=== PATIENT | male | born 1960 | race African-American/Black ===

== ENCOUNTER 2022-09-04 18:25 | Emergency (ER) | payer SELFPAY ==
[~2022-09-04] VITALS: Ht 188 cm; Wt 90.0 kg
[2022-09-04 18:27] VITALS: BP 154/96
[2022-09-04] MEDS ORDERED: ONDANSETRON HCL 4MG/2ML INJ IV STA (18:58)
[2022-09-04] MEDS ORDERED: MAGNESIUM/ALUMINUM HYDROXIDE/SIMETHICONE 30ML UDC PO STA (18:58)
[2022-09-04] MEDS ORDERED: VISCOUS LIDOCAINE 2% 15 ML UDC PO STA (18:58)
[2022-09-04] MEDS ORDERED: SODIUM CHLORIDE 0.9% 1,000 ML IV ONE (19:00)
[2022-09-04 21:01] LABS: BASOPHILS % 0.6 % (0.0-2.0); EOSINOPHILS % 0.1 % (0.0-5.0); HEMATOCRIT. 37.2 % (42.0-52.0); HEMOGLOBIN. 12.1 g/dL (14.0-18.0); LYMPHOCYTES % 10.8 % (20.0-50.0); MEAN CORPUSCULAR HEMOGLOBIN 27.7 pg (28.0-32.0); MEAN CORPUSCULAR VOLUME 85.4 fL (80.0-94.0); MEAN PLATELET VOLUME 9.7 fl (7.4-10.4); MONOCYTES % 3.2 % (2.0-8.0); NEUTROPHILS % 85.3 % (40.0-76.0); PLATELET 268 x1000/uL (130-400); RED BLOOD CELL COUNT 4.36 mill/uL (4.7-6.1); RED CELL DISTRIBUTION WIDTH 13.8 % (11.6-14.6)
[2022-09-04 21:09] LABS: CHLORIDE 100 mEq/L (98-107)
[2022-09-04 21:25] LABS: BETA HYDROXYBUTYRATE 0.3 mMol/L (0.0-0.3); ETHANOL BLOOD 189 mg/dL
== END 2022-09-04 22:05 | disposition home or self-care (01) ==
LOC: ER 18:25
DX: F10.129 Alcohol abuse with intoxication, unspecified (principal); Y90.6 Blood alcohol level of 120-199 mg/100 ml; E11.9 Type 2 diabetes mellitus without complications; I10 Essential (primary) hypertension
CPT/HCPCS: 36415; 80053; 80320; 82010; 83690; 85025; 93005; 96361; 96374; 99284; J2405; J7030; Z7610; G0480